=== PATIENT | female | born 2000 | race Caucasian/White ===

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

== ENCOUNTER 2019-01-04 12:23 | Emergency (ER) | payer BC ==
[2019-01-04 13:13] VITALS: BP 118/63
--- NOTE | 2019-01-04 13:32 | UC ---
Throat Pain/Nasal Owen HPI - HPI Summary HPI Summary: Pt presents with c/o ST, white spots on tonsils and cough X 1 week. Denies fever , chills, body aches. - History of Current Complaint Chief Complaint: UCRespiratory Stated Complaint: SORE THROAT EARS COUGH CONGESTION Time Seen by Provider: 01/04/19 13:17 Hx Obtained From: Patient Hx Last Menstrual Period: 12/21/18 ?: No Onset/Duration: Sudden Onset, Lasting Days - 7, Still Present Severity: Severe Pain Intensity: 10 Cough: Nonproductive Associated Signs & Symptoms: Positive: Dysphagia - Epiglottits Risk Factors Epiglottis Risk Factors: Negative - Allergies/Home Medications Allergies/Adverse Reactions: Allergies Allergy/AdvReac Type Severity Reaction Status Date / Time shellfish derived Allergy Severe swelling Verified 01/04/19 13:06 of face, lips and throat PMH/Surg Hx/FS Hx/Imm Hx Previously Healthy: Yes - Surgical History Surgical History: None - Family History Known Family History: Positive: Unknown - Social History Occupation: Employed Full-time Lives: With Family Alcohol Use: None Substance Use Type: None Smoking Status (MU): Light Every Day Tobacco Smoker Type: Cigarettes Amount Used/How Often: 1/2 PPD Have You Smoked in the Last Year: Yes - Immunization History Most Recent Influenza Vaccination: 2015/2016 Most Recent Pneumonia Vaccination: as infant Vaccination Up to Date: Yes Review of Systems All Other Systems Reviewed And Are Negative: Yes Constitutional: Positive: Negative Skin: Positive: Negative Eyes: Positive: Negative ENT: Positive: Sore Throat Respiratory: Positive: Cough Cardiovascular: Positive: Negative Gastrointestinal: Positive: Negative Genitourinary: Positive: Negative Motor: Positive: Negative Neurovascular: Positive: Negative Musculoskeletal: Positive: Negative Neurological: Positive: Negative Psychological: Positive: Negative Is Patient Immunocompromised?: No Physical Exam Triage Information Reviewed: Yes Appearance: Well-Appearing Vital Signs: Initial Vital Signs Temp 98.2 F 01/04/19 13:06 Pulse 60 01/04/19 13:06 Resp 18 01/04/19 13:06 BP 118/63 01/04/19 13:06 Pulse Ox 99 01/04/19 13:06 Vital Signs Reviewed: Yes Eye Exam: Normal ENT: Positive: Tonsillar swelling, Tonsillar exudate Dental Exam: Normal Neck exam: Normal Respiratory Exam: Normal Cardiovascular Exam: Normal Musculoskeletal Exam: Normal Neurological Exam: Normal Psychological Exam: Normal Skin Exam: Normal Throat Pain/Nasal Course/Dx - Differential Dx/Diagnosis Differential Diagnosis/HQI/PQRI: Mononucleosis, Tonsillitis Provider Diagnosis: Tonsillitis with exudate Discharge - Sign-Out/Discharge Documenting (check all that apply): Patient Departure All imaging exams completed and their final reports reviewed: No Studies - Discharge Plan Condition: Stable Disposition: HOME Patient Education Materials: Tonsillitis (ED), Safe Use of NSAIDs (ED) Forms: *Work Release Referrals: Santana Marques MD [Primary Care Provider] - If Needed - Billing Disposition and Condition Condition: STABLE Disposition: Home
== END 2019-01-04 13:38 | disposition home or self-care (01) ==
LOC: UCCORT 12:23
DX: J03.90 Acute tonsillitis, unspecified (principal); F17.210 Nicotine dependence, cigarettes, uncomplicated
CPT/HCPCS: 87651; 99211; G0463

== ENCOUNTER 2019-09-23 23:11 | Emergency (ER) | payer BC ==
[2019-09-24] MEDS ORDERED: Cephalexin CAP* 500 MG PO ONE (02:22)
--- NOTE | 2019-09-24 02:26 | ED ---
Skin Complaint - HPI Summary HPI Summary: Patient is a 19 y/o F presenting to [facility] for evaluation of an area of swelling , erythema, and pain to her left breast. She states that she first noticed the "bump" at her left breast a year ago. She was evaluated by Dr. Marques and was told that she had a cyst. She was placed on a medication which she cannot recall the name of; however, she experienced abdominal pain with the medication and was instructed to discontinue the medication. Patient has not had this area evaluated since. She states that a week ago, the area became swollen, erythematous, and painful. Pain is characterized as a sharpness. No drainage/ discharge, fever, N/V noted. She denies PMHx, known drug allergies, and PSHx. She smokes cigarettes but denies alcohol and other substance usage. FMHx of breast CA and asthma noted. LNMP was end of August 2019. Home medications and allergies are reviewed. - History of Current Complaint Chief Complaint: EDGeneral Time Seen by Provider: 09/24/19 01:35 Stated Complaint: CYST PER PT Hx Obtained From: Patient Hx Last Menstrual Period: 12/21/18 Onset/Duration: Started Weeks Ago, Still Present, Worse Since Skin Exposure Onset/Duration: Weeks Ago Timing: Constant, Lasting Weeks Current Severity: Mild Pain Intensity: 2 Pain Scale Used: 0-10 Numeric Skin Location: Other: - left breast Character: Swelling, Pain, Redness, Painful Associated Signs & Symptoms: Negative - Allergy/Home Medications Allergies/Adverse Reactions: Allergies Allergy/AdvReac Type Severity Reaction Status Date / Time shellfish derived Allergy Severe swelling Verified 09/23/19 23:12 of face, lips and throat Home Medications: Home Medications cephALEXin [Keflex] 500 mg PO QID #40 capsule 09/24/19 [Rx] PMH/Surg Hx/FS Hx/Imm Hx Endocrine/Hematology History: Denies: Hx Diabetes Respiratory History: Reports: Hx Asthma Psychiatric History: Reports: Hx Attention Deficit Hyperactivity Disorder, Hx Depression, Hx Community Mental Health Tx, Hx Substance Abuse Denies: Hx Inpatient Treatment, Hx of Violent Episodes Against Others Infectious Disease History: No Infectious Disease History: Denies: Traveled Outside the [place] in Last 30 Days - Family History Known Family History: Positive: Respiratory Disease, Other - breast CA - Social History Alcohol Use: None Substance Use Type: Reports: None Smoking Status (MU): Light Every Day Tobacco Smoker Type: Cigarettes Amount Used/How Often: 1/2 PPD Have You Smoked in the Last Year: Yes - Additional Comments History Additional Comments: Denies PMHx, PSHx Notes FMHx of asthma, breast CA Review of Systems - ROS Summary Review of Systems Summary: Home Medications Medication Instructions Recorded Confirmed Type cephALEXin [Keflex] 500 mg PO QID #40 capsule 09/24/19 Rx Negative: Fever Negative: Vomiting, Nausea Skin: Other - lump at left breast that is red, swollen, and painful, no discharge or drainage noted All Other Systems Reviewed And Are Negative: Yes Physical Exam - Summary Physical Exam Summary: General: Well-developed, Well-nourished female. No acute distress. HEENT: Normocephalic, Atraumatic. Eyes: Conjuctiva normal, PERRL. Oropharynx: Clear, mucous membranes moist, (-) exudates. Neck: Soft, FROM, (-) lymphadenopathy, (-) thyromegaly, (-) JVD. Cardiovascular: Normal sinus rhythm, (-) murmur. Lungs: Clear to auscultation bilaterally (-) wheezes, (-) rales, (-) rhonchi. Abdomen: Soft, non-tender, non-distended, (-) organomegaly, normal bowel sounds. Back: (-) CVA tenderness Extremities: No edema. Skin: Warm, dry, (-) rash. 8 mm erythematous protrusion to the 5 oclock area of the areola with mild surrounding erythema, positive tenderness and warmth, no drainage. Neuro: Alert and oriented x3, moves all extremities equally. No ataxia. No gait disturbance. No sensory deficit. Normal strength, normal sensation. Psychiatric: Mood normal, affect normal. Triage Information Reviewed: Yes Vital Signs On Initial Exam: Initial Vitals Temp Pulse Resp BP Pulse Ox 96.8 F 80 18 147/84 98 09/23/19 23:12 09/23/19 23:12 09/23/19 23:12 09/23/19 23:12 09/23/19 23:12 Vital Signs Reviewed: Yes Procedures - Sedation Patient Received Moderate/Deep Sedation with Procedure: No Diagnostics - Vital Signs Vital Signs Temp Pulse Resp BP Pulse Ox 09/23/19 23:12 96.8 F 80 18 147/84 98 - Laboratory Lab Statement: Any lab studies that have been ordered have been reviewed, and results considered in the medical decision making process. Course/Dx - Course Course Of Treatment: During ED course, patient received Keflex 500 mg PO. - Diagnoses Provider Diagnoses: Cellulitis of left breast Discharge ED - Sign-Out/Discharge Documenting (check all that apply): Patient Departure - DISCHARGE - Discharge Plan Condition: Stable Disposition: HOME Prescriptions: cephALEXin [Keflex] 500 mg PO QID #40 capsule Patient Education Materials: Cellulitis (ED), Abscess (ED) Referrals: Santana Marques MD [Primary Care Provider] - 3 Days Additional Instructions: PLEASE RETURN TO ED FOR ANY NEW OR WORSENING SYMPTOMS. PLEASE FOLLOW-UP WITH YOUR PRIMARY CARE PHYSICIAN WITHIN THREE DAYS. - Attestation Statements Document Initiated by Scribe: Yes Documenting Scribe: JENNIFER BLACKWELL Provider For Whom Scribe is Documenting (Include Credential): JACK EMMANUEL MD Scribe Attestation: JENNIFER Brown, scribed for JACK EMMANUEL MD on 09/24/19 at 0346. Status of Scribe Document: Ready
[2019-09-24 02:57] VITALS: BP 121/90
== END 2019-09-24 02:54 | disposition home or self-care (01) ==
LOC: ED 23:11
DX: N61.0 Mastitis without abscess (principal); R60.9 Edema, unspecified; F32.9 Major depressive disorder, single episode, unspecified; F17.210 Nicotine dependence, cigarettes, uncomplicated; F90.9 Attention-deficit hyperactivity disorder, unspecified type; Z80.3 Family history of malignant neoplasm of breast
CPT/HCPCS: 99282; A9270-GY

== ENCOUNTER 2023-07-26 10:08 | Inpatient (IN) ==
[2023-07-26] MEDS ORDERED: Lactated Ringers 1000 ml BAG 1,000 ML IV ONE (10:31)
[2023-07-26] MEDS ORDERED: Lidocaine 1% VIAL 10 MG/ML 30 ML VIAL INJ PRN (10:31)
[2023-07-26 11:05] LABS: ABS Basophils 0.1 10^3/uL (0.0-0.1); ABS Eosinophils 0.4 10^3/uL (0.0-0.5); ABS Lymphocytes 2.5 10^3/uL (1.0-4.8); ABS Monocytes 0.7 10^3/uL (0.0-0.9); ABS Neutrophils 9.7 10^3/uL (1.5-7.6); ABS Nucleated RBC 0.01 10^3/ul; Eosinophil % 3.3 %; Lymphocyte % 18.9 %; Mean Corpuscular Hemoglobin 26.6 pg (27-33); Mean Corpuscular Hgb Conc 33.4 g/dL (31-36); Mean Corpuscular Volume 79.6 fL (80-97); Mean Platelet Volume 8.1 fL (7.5-11.2); Platelet Count 386 10^3/uL (150-450); Red Blood Count 4.52 10^6/uL (3.63-4.92); Red Cell Distribution Width 15.5 % (12-17); White Blood Count 13.5 10^3/uL (3.8-11.8)
[2023-07-26] MEDS ORDERED: Oxytocin in LR 20,000 MILLI.UNIT/1,000 ML BAG IV SCH (11:05)
[2023-07-26] MEDS ORDERED: Oxytocin in LR 20,000 MILLI.UNIT/1,000 ML BAG IV ONE (11:09)
[2023-07-26 11:31] LABS: Urine Benzodiazepine Screen None Detected (None Detect); Urine Cannabinoids Screen None Detected (None Detect); Urine Opiates Screen None Detected (None Detect)
[2023-07-26] MEDS ORDERED: Dibucaine 1% OINT 28.35 GM TUBE PR PRN (11:47)
[2023-07-26] MEDS ORDERED: Witch Hazel PAD JAR TOPICAL PRN (11:47)
[2023-07-26] MEDS ORDERED: Lactated Ringers 1000 ml BAG 1,000 ML IV SCH (12:00)
[2023-07-26] MEDS ORDERED: Albuterol HFA INHALER 8 gm MDI INH PRN (16:14)
[2023-07-27 08:01] LABS: ABS Basophils 0.1 10^3/uL (0.0-0.1); ABS Eosinophils 0.3 10^3/uL (0.0-0.5); ABS Lymphocytes 3.8 10^3/uL (1.0-4.8); ABS Monocytes 0.8 10^3/uL (0.0-0.9); ABS Neutrophils 9.5 10^3/uL (1.5-7.6); Eosinophil % 2.2 %; Hematocrit 29.5 % (35-45); Lymphocyte % 26.3 %; Mean Corpuscular Hemoglobin 27.1 pg (27-33); Mean Corpuscular Hgb Conc 33.8 g/dL (31-36); Mean Corpuscular Volume 80.2 fL (80-97); Mean Platelet Volume 8.1 fL (7.5-11.2); Platelet Count 333 10^3/uL (150-450); Red Blood Count 3.68 10^6/uL (3.63-4.92); Red Cell Distribution Width 15.4 % (12-17); White Blood Count 14.4 10^3/uL (3.8-11.8)
[2023-07-28 07:49] VITALS: BP 133/69
== END 2023-07-28 14:15 | disposition home or self-care (01) | DRG 560 ==
LOC: MCHOBOUT 10:08 → MCHOB 10:32
PROVIDERS: ADMIT Midwife; ATTEND Midwife